=== PATIENT | female | born 1955 | race Caucasian/White ===

== ENCOUNTER 2016-11-10 11:52 | Emergency (ER) | payer SELFPAY ==
[2016-11-10 12:48] LABS: ABSOLUTE NEUTROPHIL COUNT 5.6 K/mm3 (1.8-7.7); BASO % 0.4 % (0.2-1.0); EOS # 0.1 (0.0-0.5); EOS % 0.8 % (0.9-2.9); HEMATOCRIT 44.4 % (37.0-47.0); HEMOGLOBIN 15.1 gm/l (12.0-16.0); IMM NEUT% 0.2 % (0-1); LYMPH # 3.5 (1.0-4.8); LYMPH % 35.8 % (15-45); MEAN CELL VOLUME 89.5 fl (81.0-99.0); MEAN CORPUSCULAR HEMOGLOBIN 30.4 pg (27.0-31.0); MEAN PLATELET VOLUME 11.7 fl (7.4-10.4); MONO # 0.6 (0.0-0.8); MONO % 6.3 % (4-12); NEUT % 56.5 % (43-75); PLATELET COUNT 226 K/mm3 (130-400); RED CELL DISTRIBUTION WIDTH 12.3 % (11.5-14.5)
[2016-11-10] MEDS ORDERED: LORAZEPAM 1 MG TABLET ONE (12:58)
[2016-11-10 13:02] LABS: ALB/GLOB RATIO 1.5 (>1.0); ALBUMIN 4.4 gm/dL (3.5-5.7); CALCIUM 9.8 mg/dL (8.6-10.3)
[2016-11-10 13:26] LABS: AMPHETAMINES/METHAMPHETAMINES NEGATIVE (NEGATIVE); COCAINE NEGATIVE (NEGATIVE); MARIJUANA POSITIVE (NEGATIVE); METHADONE NEGATIVE (NEGATIVE); OPIATES NEGATIVE (NEGATIVE); TRICYCLIC ANTIDEPRESSANTS NEGATIVE (NEGATIVE)
== END 2016-11-10 14:30 | disposition home or self-care (01) ==
LOC: ED 11:52
DX: F32.9 Major depressive disorder, single episode, unspecified (principal); R63.4 Abnormal weight loss; R53.1 Weakness; E89.0 Postprocedural hypothyroidism; I44.0 Atrioventricular block, first degree; G47.00 Insomnia, unspecified; F17.210 Nicotine dependence, cigarettes, uncomplicated
CPT/HCPCS: 83605; 83690; 85025; 80305; 80053; 80307; 84439; 87880; 84443; 99283 ×2; 93005; A9270